=== PATIENT | female | born 1990 | race Caucasian/White ===

== ENCOUNTER 2018-02-08 21:38 | Emergency (ER) | payer OTHER ==
[~2018-02-08] VITALS: Ht 157.5 cm; Wt 67.1 kg
[~2018-02-08 21:38] MED LIST: ACET500 PO; AMOX500 PO; ANTIANXIETY MED; ANTOXYBENA BOTHEARS; BENZ100A PO; BUTASPCAF PO; CIPR500 PO; CYCL10 PO; DEPRESSION MED; DOCU100 PO; HYDACE5 PO; IBUP200; IBUP400 PO; IBUP600 PO; IBUP800; IBUP800 PO; IMPLANON; KETO10 PO; MUPI2TO TOP; ONDA8ODT MM; OXYACE5T PO; PHENA100 PO; PROC10 PO; PROCODE120 PO; PROM25 PO; Percocet 5-3251 EACH PO; Prilosec Otc20 MG; RXHYDACE PO; RXOXYACE PO; TAMS.4ER PO; TRAM50 PO; Zantac150 MG PO
[2018-02-08] MEDS ORDERED: Omeprazole20 M1 PO (21:52)
[2018-02-09 00:05] LABS: BASOPHILS ABSOLUTE AUTO 0.02 K/mm3 (0.00-0.23); BASOPHILS PERCENT AUTO 0 % (0-2); EOSINOPHILS ABSOLUTE AUTO 0.08 K/mm3 (0.00-0.68); EOSINOPHILS PERCENT AUTO 1 % (0-6); Hematocrit 44.2 % (33.0-51.0); Hemoglobin 15.4 g/dL (11.5-16.0); IMMATURE GRAN ABSOLUTE AUTO 0.03 K/mm3 (0.00-0.10); IMMATURE GRAN PERCENT AUTO 0 % (0-1); LYMPHOCYTES ABSOLUTE AUTO 2.74 K/mm3 (0.84-5.20); LYMPHOCYTES PERCENT AUTO 29 % (21-46); MONOCYTES PERCENT AUTO 6 % (4-13); Mean Corpuscular HGB 30.1 pg (26.0-34.0); Mean Corpuscular HGB Conc 34.8 g/dL (31.5-36.5); Mean Corpuscular Volume 87 fL (80-100); Mean Platelet Volume 8.9 fL (9.1-12.4); NEUTROPHILS ABSOLUTE AUTO 5.97 K/mm3 (1.96-9.15); NEUTROPHILS PERCENT AUTO 63 % (41-73); Platelet Count 275 K/mm3 (150-400); RDW Standard Deviation 38.6 fL (35.1-46.3); Red Blood Cell Count 5.11 M/mm3 (3.80-5.20); White Blood Cell Count 9.44 K/mm3 (4.00-11.30)
[2018-02-09 00:22] LABS: Alanine Aminotransfer (ALT/SGP 25 U/L (12-78); Albumin, Blood 4.5 g/dL (3.4-5.0); Albumin/Globulin Ratio 1.1 (0.8-1.8); Alk Phos 53 U/L (50-136); Anion Gap 9 mmol/L (6-16); Aspartate Aminotrans (AST/SGOT 15 U/L (12-37); Bilirubin, Total 1.9 mg/dL (0.1-1.0); Blood Urea Nitrogen 10 mg/dL (8-24); Bun/Creatinine Ratio 11.4 (12.0-20.0); CO2, Blood 26 mmol/L (21-32); Calcium, Blood 9.3 mg/dL (8.5-10.1); Chloride, Blood 107 mmol/L (98-108); Creatinine, Blood 0.88 mg/dL (0.40-1.00); Globulin, Blood 4.2 g/dL (2.2-4.0); Glomerular Filtration Rate >60 (60-); Glucose, Blood 91 mg/dL (70-99); Potassium, Blood 3.8 mmol/L (3.5-5.5); Sodium, Blood 142 mmol/L (136-145); Total Protein, Blood 8.7 g/dL (6.4-8.2)
== END 2018-02-09 03:45 | disposition home or self-care (01) ==
LOC: ER 21:38
PROVIDERS: Emergency Medicine
DX: R11.2 Nausea with vomiting, unspecified (principal); Z88.5 Allergy status to narcotic agent; Z79.899 Other long term (current) drug therapy
CPT/HCPCS: 36415; 80053; 81025; 83690; 85025; 96361; 96374; 99284; J2405; J7030

== ENCOUNTER → 2019-03-03 | Outpatient (CLI) | payer OTHER ==
[~2019-03-03] MED LIST changes: +ALPR.25 PO; +ALPR.5 PO; +AMPDEX10CR PO; +BRINTELLIX5 MG PO; +DEXT30SU PO; +Omeprazole20 M1 PO; +PANT40 PO
[2019-03-03 10:24] LABS: U Amphetamine Screen Not Detected; U Barbituate Screen Not Detected; U Benzodiazapine Screen DETECTED; U Buprenorphine Screen Not Detected; U Cannabinoids Screen Not Detected; U Cocaine Screen Not Detected; U Methadone Screen Not Detected; U Methamphetamine Screen Not Detected; U Opiates Screen Not Detected; U Oxycodone Screen Not Detected; U Phencyclidine Screen Not Detected; U Propoxyphene Screen Not Detected
== END | disposition home or self-care (01) ==
LOC: LAB 09:47 → LAB SHORT 09:47
PROVIDERS: Registered Nurse Psychiatric/Mental Health
DX: F90.2 Attention-deficit hyperactivity disorder, combined type (principal); Z79.899 Other long term (current) drug therapy
CPT/HCPCS: G0480

== ENCOUNTER → 2019-03-31 | Outpatient (CLI) | payer OTHER ==
[2019-03-31 13:59] LABS: U Amphetamine Screen Not Detected; U Barbituate Screen Not Detected; U Benzodiazapine Screen Not Detected; U Buprenorphine Screen Not Detected; U Cannabinoids Screen Not Detected; U Cocaine Screen Not Detected; U Methadone Screen Not Detected; U Methamphetamine Screen Not Detected; U Opiates Screen Not Detected; U Oxycodone Screen Not Detected; U Phencyclidine Screen Not Detected; U Propoxyphene Screen Not Detected
== END | disposition home or self-care (01) ==
LOC: LAB 12:11 → LAB SHORT 12:11
PROVIDERS: Registered Nurse Psychiatric/Mental Health
DX: Z51.81 Encounter for therapeutic drug level monitoring (principal); Z79.899 Other long term (current) drug therapy

== ENCOUNTER 2019-06-08 08:35 | Day surgery (SDC) | payer OTHER ==
[~2019-06-08] VITALS: Ht 160 cm; Wt 66.2 kg
[~2019-06-08 08:35] MED LIST changes: -ALPR.5 PO; -AMPDEX10CR PO; -BRINTELLIX5 MG PO; -PANT40 PO
[2019-06-08] MEDS ORDERED: PANT40 PO (09:51)
[2019-06-08] MEDS ORDERED: AMPDEX10CR PO (09:52)
[2019-06-08] MEDS ORDERED: BRINTELLIX5 MG PO (09:52)
[2019-06-08] MEDS ORDERED: ALPR.5 PO (09:54)
--- NOTE | 2019-06-08 10:48 | NUR ---
06/08/19 1048 Claudia Shipley 1020: VITAL SIGNS: 122/82, HR 82, O2 100%, RR18 1021: TIME OUT CONDUCTED 1024: 2MG VERSED IVP GIVEN PER DR. LEZAMA 1028: INJECTION OF LIDOCAINE 1029: INJECTION OF 2MG TETRACAINE 1% & BUPIVACAINE 0.25% WITH EPINEPHRINE 1:200,[address] LEZAMA 1034: BEDSIDE INJECTION COMPLETE
--- NOTE | 2019-06-08 11:17 | NUR ---
06/08/19 1117 Pernell Ramesh A SMALL OPEN LESIONS NOTED ON PT'S ARMS, CHEST AND FACE. 2 OPEN LESIONS NOTED IN RIGHT ARM. SURGEON AWARE. BOTH PREPS DONE OVER LESIONS.
--- NOTE | 2019-06-08 12:52 | NUR ---
06/08/19 3100 Reta Carlisle PT STATES THAT SHE IS DIZZY AND DROWSY, SHE HAD COMPLAINTS OF PAIN AND NAUSEA. PT MEDICATED FOR BOTH, POLAR ICE MACHINE CONNECTED, AND NEENA HUGGER PLACED ON PATIENT FOR COMFORT AND SHIVERING. PT ENCOURAGED TO DEEP BREATHE. SHE IS TOLERATING SIPS OF WATER PO. NO FAMILY HERE CURRENTLY. WE WILL CALL HER RIDE UPON DISCHARGE TO HOME. VSS, ALTHOUGH HR WAS SLIGHTLY ELEVATED UPON TRNASFER TO SDU BUT NOW IS CLOSER TO TO HER BASELINE. WILL CONTINUE TO MONITOR, AND ONCE PT FEELS READY, WE WILL D/C TO HOME.
== END 2019-06-08 14:17 | disposition home or self-care (01) ==
LOC: ORSCSDS 08:35
PROVIDERS: Orthopaedic Surgery
PROC: 0RNJ4ZZ Release Right Shoulder Joint, Percutaneous Endoscopic Approach (ICD-10-PCS; principal; 2019-06-08 10:15)
PROC: 0LQ14ZZ Repair Right Shoulder Tendon, Percutaneous Endoscopic Approach (ICD-10-PCS; principal; 2019-06-08 10:15)
PROC: 0RBJ4ZZ Excision of Right Shoulder Joint, Percutaneous Endoscopic Approach (ICD-10-PCS; principal; 2019-06-08 10:15)
PROC: 0LU14KZ Supplement Right Shoulder Tendon with Nonautologous Tissue Substitute, Percutaneous Endoscopic Approach (ICD-10-PCS; principal; 2019-06-08 10:15)
DX: M75.101 Unspecified rotator cuff tear or rupture of right shoulder, not specified as traumatic (principal); M75.41 Impingement syndrome of right shoulder; Z79.899 Other long term (current) drug therapy
CPT/HCPCS: A9270-GY; C1713; J0171; J0690; J2250; J2405; J2704; J2765; J2795; J3010; J7120

== ENCOUNTER → 2019-09-24 | Outpatient (CLI) | payer OTHER ==
[~2019-09-24] MED LIST changes: +ALPR.5 PO; +AMPDEX10CR PO; +BRINTELLIX5 MG PO; +PANT40 PO
[2019-09-24 20:09] LABS: U Amphetamine Screen Not Detected; U Barbituate Screen Not Detected; U Benzodiazapine Screen Not Detected; U Buprenorphine Screen Not Detected; U Cannabinoids Screen Not Detected; U Cocaine Screen Not Detected; U Methadone Screen Not Detected; U Methamphetamine Screen Not Detected; U Opiates Screen Not Detected; U Oxycodone Screen Not Detected; U Phencyclidine Screen Not Detected; U Propoxyphene Screen Not Detected
== END | disposition home or self-care (01) ==
LOC: LAB SHORT 17:34 → LAB 17:34
PROVIDERS: Registered Nurse Psychiatric/Mental Health
DX: Z51.81 Encounter for therapeutic drug level monitoring (principal); Z79.899 Other long term (current) drug therapy

== ENCOUNTER 2020-11-30 20:08 | Emergency (ER) | payer OTHER ==
[~2020-11-30] VITALS: Ht 160 cm; Wt 74.8 kg
[2020-11-30 20:59] LABS: BASOPHILS ABSOLUTE AUTO 0.03 K/mm3 (0.00-0.23); BASOPHILS PERCENT AUTO 0 % (0-2); EOSINOPHILS ABSOLUTE AUTO 0.14 K/mm3 (0.00-0.68); EOSINOPHILS PERCENT AUTO 2 % (0-6); Hematocrit 41.1 % (33.0-51.0); Hemoglobin 14.4 g/dL (11.5-16.0); IMMATURE GRAN ABSOLUTE AUTO 0.03 K/mm3 (0.00-0.10); IMMATURE GRAN PERCENT AUTO 0 % (0-1); LYMPHOCYTES ABSOLUTE AUTO 2.65 K/mm3 (0.84-5.20); LYMPHOCYTES PERCENT AUTO 33 % (21-46); MONOCYTES ABSOLUTE AUTO 0.49 K/mm3 (0.16-1.47); MONOCYTES PERCENT AUTO 6 % (4-13); Mean Corpuscular HGB 29.6 pg (26.0-34.0); Mean Corpuscular Volume 84 fL (80-100); Mean Platelet Volume 8.9 fL (9.1-12.4); NEUTROPHILS ABSOLUTE AUTO 4.77 K/mm3 (1.96-9.15); NEUTROPHILS PERCENT AUTO 59 % (41-73); Platelet Count 301 K/mm3 (150-400); RDW Coefficient Variation 12.2 % (11.7-14.2); RDW Standard Deviation 37.3 fL (35.1-46.3); Red Blood Cell Count 4.87 M/mm3 (3.80-5.20); White Blood Cell Count 8.11 K/mm3 (4.00-11.30)
[2020-11-30 21:28] LABS: Alanine Aminotransfer (ALT/SGP 24 U/L (12-78); Albumin, Blood 3.6 g/dL (3.4-5.0); Albumin/Globulin Ratio 0.9 (0.8-1.8); Alk Phos 39 U/L (50-136); Anion Gap 10 mmol/L (6-16); Aspartate Aminotrans (AST/SGOT 16 U/L (12-37); Bilirubin, Total 0.6 mg/dL (0.1-1.0); Blood Urea Nitrogen 8 mg/dL (8-24); Bun/Creatinine Ratio 9.7 (12.0-20.0); CO2, Blood 24 mmol/L (21-32); Calcium, Blood 8.6 mg/dL (8.5-10.1); Chloride, Blood 107 mmol/L (98-108); Creatinine, Blood 0.83 mg/dL (0.40-1.00); Globulin, Blood 4.2 g/dL (2.2-4.0); Glomerular Filtration Rate >60 (60-); Glucose, Blood 112 mg/dL (70-99); Potassium, Blood 3.3 mmol/L (3.5-5.5); Sodium, Blood 141 mmol/L (136-145); Total Protein, Blood 7.8 g/dL (6.4-8.2); Troponin I <0.015 ng/mL (0.000-0.040)
[2020-11-30] MEDS ORDERED: BRINTELLIX10 MG PO (23:04)
[2020-11-30] MEDS ORDERED: TRAZ100 PO (23:04)
[2020-11-30] MEDS ORDERED: NEURONTIN300 MG PO (23:04)
[2020-11-30] MEDS ORDERED: ACYC200 PO (23:05)
[2020-11-30] MEDS ORDERED: BIRTH CONTROL (23:07)
[2020-11-30 23:50] LABS: Source, Urine Clean Catch
[2020-11-30 23:52] LABS: Bilirubin, Urine Neg (Neg); Blood, Urine 3+ (Neg); Glucose Qualitative, Urine Neg (Neg); Ketones, Urine Neg (Neg); Leukocyte Esterase, Urine 1+ (Neg); Nitrite, Urine Neg (Neg); Protein, Urine 1+ (Neg); Urobilinogen, Urine NORM (Normal); pH, Urine 6.5 (5.0-8.0)
[2020-12-01] LABS: Color, Urine Yellow (P-Yellow)
[2020-12-01 00:02] LABS: Appearance, Urine Clear (Clear)
[2020-12-01 00:10] LABS: Bacteria Few /hpf; Red Blood Cells, Urine 25-50 /hpf (0-2); Squamous Epithelial Cells Mod /hpf (Few); White Blood Cells, Urine 0-2 /hpf (0-5)
== END 2020-12-01 00:25 | disposition home or self-care (01) ==
LOC: ER 20:08
PROVIDERS: Physician Assistant
DX: R07.9 Chest pain, unspecified (principal); K21.9 Gastro-esophageal reflux disease without esophagitis; Z88.5 Allergy status to narcotic agent; Z79.899 Other long term (current) drug therapy
CPT/HCPCS: 36415; 71045; 80053; 81001; 83690; 84484; 85025; 93005; 93010; 96374; 99284-25; A9270; J1885

== ENCOUNTER 2021-03-22 12:10 | Emergency (ER) | payer OTHER ==
[~2021-03-22] VITALS: Ht 160 cm; Wt 75.3 kg
[~2021-03-22 12:10] MED LIST changes: +ACYC200 PO; +BIRTH CONTROL; +BRINTELLIX10 MG PO; +NEURONTIN300 MG PO; +TRAZ100 PO
[2021-03-22] MEDS ORDERED: Norco 5-325 Ta1 EACH PO (15:37)
== END 2021-03-22 15:45 | disposition home or self-care (01) ==
LOC: ER 12:10
DX: S23.41XA Sprain of ribs, initial encounter (principal); S29.011A Strain of muscle and tendon of front wall of thorax, initial encounter; K21.9 Gastro-esophageal reflux disease without esophagitis; Z79.899 Other long term (current) drug therapy; X50.0XXA Overexertion from strenuous movement or load, initial encounter; Y99.0 Civilian activity done for income or pay
CPT/HCPCS: 71046; 99283-25

== ENCOUNTER → 2021-11-01 | Outpatient (CLI) | payer OTHER ==
[~2021-11-01] MED LIST changes: +Norco 5-325 Ta1 EACH PO
== END | disposition home or self-care (01) ==
LOC: LAB SHORT 19:15
DX: K21.00 Gastro-esophageal reflux disease with esophagitis, without bleeding (principal)
CPT/HCPCS: 87338

== ENCOUNTER 2022-01-31 12:42 | Day surgery (SDC) | payer OTHER ==
[~2022-01-31] VITALS: Ht 160 cm; Wt 75.7 kg
[2022-01-31] MEDS ORDERED: CIME400 (13:05)
[2022-01-31] MEDS ORDERED: OMEP20ER (13:06)
== END 2022-01-31 14:28 | disposition home or self-care (01) ==
LOC: ORSCSDS 12:42
PROVIDERS: Student in an Organized Health Care Education/Training Program
PROC: 0DB58ZX Excision of Esophagus, Via Natural or Artificial Opening Endoscopic, Diagnostic (ICD-10-PCS; principal; 2022-01-31 14:00)
PROC: 0DB68ZX Excision of Stomach, Via Natural or Artificial Opening Endoscopic, Diagnostic (ICD-10-PCS; principal; 2022-01-31 14:00)
DX: R13.10 Dysphagia, unspecified (principal); K21.9 Gastro-esophageal reflux disease without esophagitis; F32.A Depression, unspecified; Z79.899 Other long term (current) drug therapy
CPT/HCPCS: 88305; 88342; J2704; J7120

== ENCOUNTER 2023-12-14 20:09 | Emergency (ER) | payer OTHER ==
[~2023-12-14] VITALS: Ht 160 cm; Wt 69.4 kg
[~2023-12-14 20:09] MED LIST changes: +CIME400 PO; +OMEP20ER PO
[2023-12-14] MEDS ORDERED: LAMO25 (20:16)
[2023-12-14] MEDS ORDERED: ZALE10 (20:17)
[2023-12-14] MEDS ORDERED: RAME8 (20:17)
[2023-12-14] MEDS ORDERED: ALDACTONE25 MG (20:17)
[2023-12-14 20:37] LABS: BASOPHILS ABSOLUTE AUTO 0.02 K/mm3 (0.00-0.23); BASOPHILS PERCENT AUTO 0 % (0-2); EOSINOPHILS ABSOLUTE AUTO 0.07 K/mm3 (0.00-0.68); EOSINOPHILS PERCENT AUTO 1 % (0-6); Hematocrit 36.4 % (33.0-51.0); Hemoglobin 11.4 g/dL (11.5-16.0); IMMATURE GRAN ABSOLUTE AUTO 0.01 K/mm3 (0.00-0.10); IMMATURE GRAN PERCENT AUTO 0 % (0-1); LYMPHOCYTES ABSOLUTE AUTO 1.67 K/mm3 (0.84-5.20); LYMPHOCYTES PERCENT AUTO 33 % (21-46); MONOCYTES ABSOLUTE AUTO 0.45 K/mm3 (0.16-1.47); MONOCYTES PERCENT AUTO 9 % (4-13); Mean Corpuscular HGB 26.4 pg (26.0-34.0); Mean Corpuscular HGB Conc 31.3 g/dL (31.5-36.5); Mean Corpuscular Volume 84 fL (80-100); Mean Platelet Volume 8.7 fL (9.1-12.4); NEUTROPHILS ABSOLUTE AUTO 2.83 K/mm3 (1.96-9.15); NEUTROPHILS PERCENT AUTO 56 % (41-73); Platelet Count 339 K/mm3 (150-400); RDW Coefficient Variation 13.1 % (11.7-14.2); RDW Standard Deviation 40.3 fL (35.1-46.3); Red Blood Cell Count 4.32 M/mm3 (3.80-5.20); White Blood Cell Count 5.05 K/mm3 (4.00-11.30)
[2023-12-14 21:04] LABS: Albumin/Globulin Ratio 1.2 (0.8-1.8); Bilirubin, Total 0.3 mg/dL (0.1-1.0); Bun/Creatinine Ratio 7.5 (12.0-20.0); Calcium, Blood 9.5 mg/dL (8.5-10.1); Creatinine, Blood 0.8 mg/dL (0.40-1.00); Globulin, Blood 3.3 g/dL (2.2-4.0); Potassium, Blood 3.7 mmol/L (3.5-5.5); Total Protein, Blood 7.3 g/dL (6.4-8.2)
[2023-12-14] MEDS ORDERED: AMPDEX10CR PO (21:44)
[2023-12-14] MEDS ORDERED: LAMOTRIGINE100 M1 PO (21:44)
[2023-12-14] MEDS ORDERED: AMPDEX5 PO (21:47)
[2023-12-14] MEDS ORDERED: SPIRONOLACTONE25 MG PO (21:48)
[2023-12-14] MEDS ORDERED: ACYCLOVIR400 MG PO (21:48)
[2023-12-14] MEDS ORDERED: RAMELTEON8 MG PO (21:49)
[2023-12-14] MEDS ORDERED: ZALEPLON PO (21:50)
[2023-12-14 23:30] VITALS: BP 107/80
== END 2023-12-14 23:56 | disposition home or self-care (01) ==
LOC: ER 20:09
PROVIDERS: Physician Assistant
DX: R00.2 Palpitations (principal); R42 Dizziness and giddiness; F41.9 Anxiety disorder, unspecified; I10 Essential (primary) hypertension; K21.9 Gastro-esophageal reflux disease without esophagitis; F41.0 Panic disorder [episodic paroxysmal anxiety]; Z79.899 Other long term (current) drug therapy; Z88.5 Allergy status to narcotic agent
CPT/HCPCS: 80053; 84484; 84703; 85025; 85379; 93005; 93010; 99285-25